=== PATIENT | female | born 1985 | race Caucasian/White ===

== ENCOUNTER 2024-12-15 19:34 | Inpatient (IN) | payer SELFPAY ==
[~2024-12-15] VITALS: Ht 162.6 cm; Wt 123.4 kg
[2024-12-15] MEDS: SODIUM CHLORIDE 0.9% 1,000 ML IV ONE (19:54)
[2024-12-15] MEDS: DILTIAZEM HCL 5MG/ML 5ML VIAL IV ONE ×2 (20:14→20:45)
[2024-12-15 20:45] LABS: BASOPHILS % 0.5 % (0.0-2.0); DIFFERENTIAL COMMENT 0; EOSINOPHILS % 1.2 % (0.0-5.0); HEMATOCRIT. 33.7 % (36.0-48.0); HEMOGLOBIN. 10.6 g/dL (12.0-16.0); LYMPHOCYTES % 25.2 % (20.0-50.0); MEAN CORPUSCULAR HEMOGLOBIN 23.5 pg (28.0-32.0); MEAN CORPUSCULAR HGB CONC 31.6 g/dL (31.0-37.0); MEAN CORPUSCULAR VOLUME 74.4 fL (81.0-99.0); MEAN PLATELET VOLUME 7.3 fl (7.4-10.4); MONOCYTES % 4.8 % (2.0-8.0); NEUTROPHILS % 68.3 % (40.0-76.0); PLATELET 444 x1000/uL (130-400); RED BLOOD CELL COUNT 4.53 mill/uL (4.2-5.4); RED CELL DISTRIBUTION WIDTH 16.2 % (11.6-14.6); WHITE BLOOD COUNT 9.8 x1000/uL (4.5-11.0)
[2024-12-15 20:51] LABS: CHLORIDE 110 mEq/L (98-107); POTASSIUM 3.8 mEq/L (3.5-5.1); SODIUM 142 mEq/L (136-145)
[2024-12-15 20:52] LABS: CALCIUM 9.4 mg/dL (8.7-10.4); CARBON DIOXIDE 23 mEq/L (21-32)
[2024-12-15 20:56] LABS: CREATININE 0.8 mg/dL (0.6-1.0)
[2024-12-15 20:57] LABS: GLUCOSE 193 mg/dL (70-105); UREA NITROGEN BLOOD 11 mg/dL (9-23)
[2024-12-15 20:58] LABS: INR 0.9; PARTIAL THROMBOPLASTIN TIME 25.1 sec (23.4-31.0); TROPONIN I HIGH SENSITIVITY 5 ng/L (3.0-34)
[2024-12-15] MEDS: METOPROLOL TARTRATE 5MG/5ML VIAL IV ONE (21:32)
[2024-12-15] MEDS ORDERED: DOCUSATE SODIUM 100MG CAPSULE PO PRN (22:15)
[2024-12-15] MEDS ORDERED: ONDANSETRON HCL 4MG/2ML INJ IV PRN (22:15)
[2024-12-15] MEDS ORDERED: MAGNESIUM/ALUMINUM HYDROXIDE/SIMETHICONE 30ML UDC PO PRN (22:15)
[2024-12-15] MEDS ORDERED: IPRATROPIUM/ALBUTEROL 0.5-3(2.5)MG/3ML NEB HHN PRN (22:15)
[2024-12-15] MEDS ORDERED: ACETAMINOPHEN 325MG TABLET PO PRN (22:15)
[2024-12-15] MEDS ORDERED: CLONIDINE 0.1MG TABLET PO PRN (22:15)
[2024-12-15] MEDS ORDERED: GUAIFENESIN 200MG/10ML SUGAR FREE UDC PO PRN (22:15)
[2024-12-15] MEDS ORDERED: DEXTROSE 50% WATER 50ML SYRINGE IV PRN (22:30)
[2024-12-15] MEDS ORDERED: METOPROLOL TARTRATE 5MG/5ML VIAL IV PRN (22:45)
[2024-12-15] MEDS: MULTIVITAMINS,THER W-MINERALS TABLET PO SCH (22:51)
[2024-12-15 23:27] VITALS: BP 116/52; PULSE 79; RESP 17; TEMP 36.8; TEMP 36.9; O2SAT 100
[2024-12-15 23:32] LABS: CLARITY URINE CLEAR (CLEAR); COLOR URINE YELLOW (YELLOW); GLUCOSE URINE NEGATIVE (NEGATIVE); KETONES URINE NEGATIVE (NEGATIVE); LEUKOCYTE ESTERASE URINE TRACE (NEGATIVE); NITRITE URINE NEGATIVE (NEGATIVE); OCCULT BLOOD URINE NEGATIVE (NEGATIVE); PH URINE 6.5 (4.5-8.0); PROTEIN URINE NEGATIVE (NEGATIVE); SPECIFIC GRAVITY URINE 1.006 (1.005-1.030); UROBILINOGEN URINE 0.2 E.U./dL (0.2-1.0)
[2024-12-16] VITALS: BP 116/52; PULSE 79; RESP 17; TEMP 36.8; O2SAT 100
[2024-12-16 01:12] LABS: SQUAMOUS EPITHELIAL CELL URINE 1+ /lpf (RARE/1+)
[2024-12-16 01:13] LABS: BACTERIA URINE NONE SEEN; RBC URINE 0-2 /hpf (0-2)
[2024-12-16 01:50] LABS: IRON 36 ug/dL (50-170); TRIGLYCERIDE 129 mg/dL (0-150)
[2024-12-16 01:51] LABS: LDL CHOLESTEROL 75 mg/dL (5-100)
[2024-12-16 01:52] LABS: CHOLESTEROL 128 mg/dL (<200); HDL CHOLESTEROL 40 mg/dL (>65); TROPONIN I HIGH SENSITIVITY 11 ng/L (3.0-34)
[2024-12-16 01:53] LABS: TOTAL IRON BINDING CAPACITY 324 ug/dl (250-425)
[2024-12-16 03:12] LABS: FOLIC ACID (FOLATE) SERUM > 20.00 ng/mL (>5.38)
[2024-12-16 03:13] LABS: VITAMIN B12 SERUM 459 pg/mL (211-911)
[2024-12-16 03:18] LABS: FERRITIN 4 ng/mL (10-291)
[2024-12-16 04:00] VITALS: BP 110/60; PULSE 75; RESP 16; TEMP 36.7; O2SAT 96
[2024-12-16] MEDS: BLOOD SUGAR DIAGNOSTIC STRIP TEST SCH (05:45)
[2024-12-16] MEDS: METOPROLOL TARTRATE 25MG TABLET PO SCH (05:45)
[2024-12-16] MEDS: INSULIN LISPRO 100 UNITS/ML SUBCUT SCH (05:45)
[2024-12-16 08:00] VITALS: BP 120/64; PULSE 106; RESP 19; TEMP 36.8; O2SAT 95
[2024-12-16 10:03] LABS: *AMPHETAMINES SCREEN URINE NEGATIVE (NEGATIVE); *BARBITURATES SCREEN URINE NEGATIVE (NEGATIVE); *BENZODIAZEPINES SCREEN URINE NEGATIVE (NEGATIVE); *COCAINE SCREEN URINE NEGATIVE (NEGATIVE); METHADONE URINE SCREEN NEGATIVE (NEGATIVE)
[2024-12-16 10:04] LABS: CANNABINOID URINE SCREEN NEGATIVE (NEGATIVE); ECSTASY MDMA SCREEN URINE NEGATIVE (NEGATIVE); OPIATES URINE SCREEN NEGATIVE (NEGATIVE); PHENCYCLIDINE URINE SCREEN NEGATIVE (NEGATIVE)
[2024-12-16 12:00] VITALS: BP 109/61; PULSE 89; RESP 18; TEMP 36.8; O2SAT 97
[2024-12-16] MEDS: METOPROLOL TARTRATE 25MG TABLET PO NR (13:00)
[2024-12-16] MEDS: MAGNESIUM OXIDE 400MG TABLET PO SCH (14:30)
[2024-12-16] MEDS: ASPIRIN 81MG EC TABLET PO NR (14:31)
[2024-12-16] MEDS: MAGNESIUM 2 G PREMIX 50 ML IV NR (14:31)
[2024-12-16 16:00] VITALS: BP 127/52; PULSE 84; RESP 15; TEMP 36.8; O2SAT 98
[2024-12-16 20:00] VITALS: BP 112/55; PULSE 84; RESP 16; TEMP 36.7; O2SAT 98
[2024-12-16] MEDS: FAMOTIDINE 20MG TABLET PO SCH (21:00)
[2024-12-16] MEDS: ACETAMINOPHEN 325MG TABLET PO PRN (22:29)
[2024-12-17] VITALS: BP_SYST 103; BP_SYST 105; BP_DIAS 50; BP_DIAS 53; PULSE 74; PULSE 86; RESP 17; RESP 18; TEMP 36.4; TEMP 36.5; O2SAT 98; O2SAT 99
[2024-12-17 04:00] VITALS: BP 105/50; PULSE 86; RESP 17; TEMP 36.5; O2SAT 98
[2024-12-17 08:10] LABS: BASOPHILS % 0.3 % (0.0-2.0); DIFFERENTIAL COMMENT 0; HEMATOCRIT. 29.7 % (36.0-48.0); HEMOGLOBIN. 9.4 g/dL (12.0-16.0); LYMPHOCYTES % 32.1 % (20.0-50.0); MEAN CORPUSCULAR HEMOGLOBIN 23.5 pg (28.0-32.0); MEAN CORPUSCULAR HGB CONC 31.5 g/dL (31.0-37.0); MEAN CORPUSCULAR VOLUME 74.5 fL (81.0-99.0); MEAN PLATELET VOLUME 7.5 fl (7.4-10.4); NEUTROPHILS % 58.6 % (40.0-76.0); PLATELET 386 x1000/uL (130-400); RED BLOOD CELL COUNT 3.99 mill/uL (4.2-5.4); RED CELL DISTRIBUTION WIDTH 16.3 % (11.6-14.6); WHITE BLOOD COUNT 8.8 x1000/uL (4.5-11.0)
[2024-12-17 08:25] VITALS: BP 130/66; PULSE 82; RESP 18; TEMP 37.1; O2SAT 99
[2024-12-17 08:45] LABS: CARBON DIOXIDE 22 mEq/L (21-32); CHLORIDE 110 mEq/L (98-107); POTASSIUM 3.9 mEq/L (3.5-5.1); SODIUM 140 mEq/L (136-145)
[2024-12-17 08:46] LABS: CALCIUM 8.7 mg/dL (8.7-10.4)
[2024-12-17 08:51] LABS: CREATININE 0.6 mg/dL (0.6-1.0); GLUCOSE 100 mg/dL (70-105); UREA NITROGEN BLOOD 12 mg/dL (9-23)
[2024-12-17 08:53] LABS: PHOSPHORUS 3.1 mg/dL (2.5-4.9)
[2024-12-17 08:57] LABS: THYROID STIMULATING HORMONE 2.72 uIU/mL (0.55-4.78)
[2024-12-17] MEDS: ASPIRIN 81MG EC TABLET PO SCH (09:05)
[2024-12-17 12:00] VITALS: BP 117/79; PULSE 77; RESP 18; TEMP 36.6; O2SAT 100
[2024-12-17] MEDS ORDERED: METO25TA6 PO (15:47)
[2024-12-17] MEDS ORDERED: ASPI-1406 PO (15:47)
[2024-12-17 15:54] VITALS: BP 117/79; PULSE 79; TEMP 98; O2SAT 98
[2024-12-17 16:25] VITALS: BP 138/85; PULSE 77; RESP 18; TEMP 36.6; O2SAT 100
== END 2024-12-17 18:22 | disposition home or self-care (01) | DRG 201 ==
LOC: ER 19:34 → 5WST 21:59 → EDBEDREQTM 22:04 → EDBEDREQ 22:04
PROVIDERS: ADMIT Hospitalist; ATTEND Hospitalist
PROC: 5A2204Z Restoration of Cardiac Rhythm, Single (ICD-10-PCS; principal; 2024-12-16)
DX: I48.0 Paroxysmal atrial fibrillation (principal); D50.9 Iron deficiency anemia, unspecified; E66.9 Obesity, unspecified; E83.42 Hypomagnesemia; F17.200 Nicotine dependence, unspecified, uncomplicated; I47.10 Supraventricular tachycardia, unspecified; R73.9 Hyperglycemia, unspecified; Z68.42 Body mass index [BMI] 45.0-49.9, adult; Z79.82 Long term (current) use of aspirin; Z82.49 Family history of ischemic heart disease and other diseases of the circulatory system; Z83.3 Family history of diabetes mellitus
CPT/HCPCS: 36415; 71045; 80048; 80061; 80305; 81003; 82607; 82728; 82746; 82962; 83036; 83540; 83550; 83735; 83880; 84100; 84443; 84484; 85025; 93005; 93306; 99291; J3475; J3490; J7030

== ENCOUNTER 2025-01-11 03:08 | Emergency (ER) | payer MEDICAID ==
[~2025-01-11] VITALS: Ht 162.6 cm; Wt 115.6 kg
[~2025-01-11 03:08] MED LIST: METO25TA6 PO
[2025-01-11 03:26] VITALS: TEMP 36.7; O2SAT 100
[2025-01-11 03:57] LABS: DIFFERENTIAL COMMENT 0; EOSINOPHILS % 1.7 % (0.0-5.0); HEMATOCRIT. 35.5 % (36.0-48.0); HEMOGLOBIN. 11.4 g/dL (12.0-16.0); LYMPHOCYTES % 34.4 % (20.0-50.0); MEAN CORPUSCULAR HEMOGLOBIN 23.7 pg (28.0-32.0); MEAN CORPUSCULAR VOLUME 74.2 fL (81.0-99.0); MEAN PLATELET VOLUME 7.4 fl (7.4-10.4); MONOCYTES % 6.6 % (2.0-8.0); NEUTROPHILS % 56.3 % (40.0-76.0); PLATELET 479 x1000/uL (130-400); RED BLOOD CELL COUNT 4.79 mill/uL (4.2-5.4); RED CELL DISTRIBUTION WIDTH 17.5 % (11.6-14.6); WHITE BLOOD COUNT 9.7 x1000/uL (4.5-11.0)
[2025-01-11 04:12] LABS: CHLORIDE 109 mEq/L (98-107); POTASSIUM 4.1 mEq/L (3.5-5.1); SODIUM 139 mEq/L (136-145)
[2025-01-11 04:13] LABS: CARBON DIOXIDE 22 mEq/L (21-32)
[2025-01-11 04:14] LABS: CALCIUM 8.8 mg/dL (8.7-10.4)
[2025-01-11 04:18] LABS: CREATININE 0.7 mg/dL (0.6-1.0)
[2025-01-11 04:19] LABS: GLUCOSE 97 mg/dL (70-105); UREA NITROGEN BLOOD 12 mg/dL (9-23)
[2025-01-11 04:21] LABS: TROPONIN I HIGH SENSITIVITY < 4 ng/L (3.0-34)
[2025-01-11 05:56] VITALS: BP 127/89; PULSE 84; RESP 16; O2SAT 100
[2025-01-11 06:12] LABS: CLARITY URINE CLEAR (CLEAR); COLOR URINE YELLOW (YELLOW); GLUCOSE URINE NEGATIVE (NEGATIVE); KETONES URINE NEGATIVE (NEGATIVE); LEUKOCYTE ESTERASE URINE 1+ (NEGATIVE); NITRITE URINE NEGATIVE (NEGATIVE); OCCULT BLOOD URINE NEGATIVE (NEGATIVE); PH URINE 5.5 (4.5-8.0); PROTEIN URINE NEGATIVE (NEGATIVE); SPECIFIC GRAVITY URINE 1.009 (1.005-1.030); UROBILINOGEN URINE 0.2 E.U./dL (0.2-1.0)
[2025-01-11 07:03] LABS: SQUAMOUS EPITHELIAL CELL URINE FEW /lpf (RARE/1+)
[2025-01-11 07:05] LABS: RBC URINE 0-2 /hpf (0-2)
[2025-01-11 07:07] LABS: BACTERIA URINE 1+
== END 2025-01-11 05:57 | disposition home or self-care (01) ==
LOC: ER 03:08
DX: R00.2 Palpitations (principal); I48.91 Unspecified atrial fibrillation; F12.90 Cannabis use, unspecified, uncomplicated; Z79.899 Other long term (current) drug therapy; Z90.49 Acquired absence of other specified parts of digestive tract; Z88.0 Allergy status to penicillin
CPT/HCPCS: 36415; 71045; 80048; 81003; 84484; 85025; 93005; 99285